=== PATIENT | female | born 1950 | race Caucasian/White ===

== ENCOUNTER 2017-04-27 13:08 | Emergency (ER) | payer MEDICARE, OTHER | END 2017-04-27 16:06 | disposition home or self-care (01) | LOC: FTE 13:08 | DX: M25.511 Pain in right shoulder (principal); M25.562 Pain in left knee; E11.9 Type 2 diabetes mellitus without complications | CPT/HCPCS: 99284; 99284-25 ==

== ENCOUNTER 2017-04-27 20:47 | Emergency (ER) | payer MEDICARE, OTHER ==
[2017-04-27] MEDS: HYDROCODONE/APAP (5/325) TAB PO (22:11)
== END 2017-04-28 00:55 | disposition home or self-care (01) ==
LOC: E/R 04-28 00:55
DX: S39.92XA Unspecified injury of lower back, initial encounter (principal); W18.39XA Other fall on same level, initial encounter; Y92.9 Unspecified place or not applicable; Z79.84 Long term (current) use of oral hypoglycemic drugs
CPT/HCPCS: 72131; 99284-25